=== PATIENT | female | born 1955 ===

== ENCOUNTER 2020-07-26 12:00 | Inpatient (IN) | payer OTHER ==
[~2020-07-26] VITALS: Ht 160 cm; Wt 108.9 kg
[2020-07-26] MEDS ORDERED: LIPITOR20 MG PO (15:47)
[2020-07-26] MEDS ORDERED: HUMULIN 70100 UNIT/2 SUBCUTANEO (15:47)
[2020-07-26] MEDS ORDERED: LOSARTAN-HCTZ1 EACH PO (15:47)
== END 2020-07-30 10:10 | disposition home or self-care (01) | DRG 741 ==
LOC: O/R 07-27 06:10 → OB/GYN 07-27 06:10
PROVIDERS: ADMIT Specialist; ATTEND Specialist
PROC: 0UT20ZZ Resection of Bilateral Ovaries, Open Approach (ICD-10-PCS; 2020-07-27)
PROC: 0UT70ZZ Resection of Bilateral Fallopian Tubes, Open Approach (ICD-10-PCS; 2020-07-27)
PROC: 07BC0ZX Excision of Pelvis Lymphatic, Open Approach, Diagnostic (ICD-10-PCS; 2020-07-27)
PROC: 0UT90ZZ Resection of Uterus, Open Approach (ICD-10-PCS; principal; 2020-07-27 14:00)
DX: C54.1 Malignant neoplasm of endometrium (principal); N83.292 Other ovarian cyst, left side; N83.291 Other ovarian cyst, right side; I10 Essential (primary) hypertension; E78.00 Pure hypercholesterolemia, unspecified

== ENCOUNTER 2020-10-08 11:19 | Emergency (ER) | payer OTHER ==
[~2020-10-08] VITALS: Ht 160 cm; Wt 103.4 kg
[~2020-10-08 11:19] MED LIST: HUMULIN 70100 UNIT/2 SUBCUTANEO; LIPITOR20 MG PO; LOSARTAN-HCTZ1 EACH PO
[2020-10-08] MEDS ORDERED: HUMALOG100 UNIT/2 (11:51)
[2020-10-08] MEDS ORDERED: GLUMETZA1000 MG (11:51)
== END 2020-10-08 18:41 | disposition home or self-care (01) ==
LOC: ER 11:19
DX: L02.211 Cutaneous abscess of abdominal wall (principal); L03.311 Cellulitis of abdominal wall; T81.41XA Infection following a procedure, superficial incisional surgical site, initial encounter; B95.61 Methicillin susceptible Staphylococcus aureus infection as the cause of diseases classified elsewhere; B95.1 Streptococcus, group B, as the cause of diseases classified elsewhere; Y83.8 Other surgical procedures as the cause of abnormal reaction of the patient, or of later complication, without mention of misadventure at the time of the procedure